=== PATIENT | female | born 1970 | race Caucasian/White ===

== ENCOUNTER 2025-02-23 08:07 | Emergency (ER) | payer BC ==
[~2025-02-23] VITALS: Ht 149.9 cm; Wt 86.0 kg
[2025-02-23] MEDS ORDERED: GARLIC1000 MG PO (08:27)
[2025-02-23 09:29] LABS: BASOPHILS 0.9 % (0.1-1.2); EOSINOPHILS 7.6 % (0.7-5.8); LYMPHOCYTES 30.0 % (19.3-51.7); MCH 28.7 PG (25.6-32.2); MCHC 33.6 g/dL (32.2-35.5); MCV 85.4 fL (79.4-94.8); MONOCYTES 6.2 % (4.7-12.5); NEUTROPHILS 55.1 % (34.0-71.1); RBC 4.39 M/uL (3.93-5.22)
[2025-02-23] MEDS ORDERED: SODIUM CHLORIDE 0.9% 1,000 ML IV PRN (09:30)
[2025-02-23 09:39] LABS: ALT (SGPT) 44.0 U/L (14-59); AST (SGOT) 23.0 U/L (15-37); GLOMERULAR FILTRATION RATE,EST 81.0 mL/min (>60); PROTEIN, TOTAL 7.5 g/dL (6.4-8.2); UREA NITROGEN 10.0 mg/dL (7-18)
[2025-02-23 11:08] LABS: BASOPHILS 0.5 % (0.1-1.2); EOSINOPHILS 3.6 % (0.7-5.8); LYMPHOCYTES 19.1 % (19.3-51.7); MCH 28.7 PG (25.6-32.2); MCHC 33.4 g/dL (32.2-35.5); MCV 85.8 fL (79.4-94.8); MONOCYTES 4.7 % (4.7-12.5); NEUTROPHILS 71.9 % (34.0-71.1); RBC 3.87 M/uL (3.93-5.22)
[2025-02-23 12:00] VITALS: BP 157/94
== END 2025-02-23 11:50 | disposition home or self-care (01) ==
LOC: ED 08:07
PROVIDERS: Emergency Medicine
DX: K62.5 Hemorrhage of anus and rectum (principal); I10 Essential (primary) hypertension; Z91.018 Allergy to other foods
CPT/HCPCS: 36415; 74177; 80053; 83605; 85025; 99284-25; J7030; Q9967